=== PATIENT | male | born 1975 | race Hispanic/Latino ===

== ENCOUNTER 2021-09-18 06:33 | Emergency (ER) | payer BC ==
[~2021-09-18] VITALS: Ht 177.8 cm; Wt 86.2 kg
[2021-09-18] MEDS ORDERED: SODIUM CHLORIDE 0.9% 1000ML 1,000 ML IV STA (06:44)
[2021-09-18] MEDS ORDERED: KETOROLAC TROMETHAMINE 30 MG/ML VIAL IV STA (06:44)
[2021-09-18] MEDS ORDERED: FENTANYL CITRATE/PF 100MCG/2 ML INJ IV PRN (06:45)
[2021-09-18 06:53] LABS: BASOPHILS % 0.3 % (0.0-1.0); EOSINOPHILS # (AUTO) 0.2 (0.0-0.4); HEMATOCRIT 34.8 % (38.2-49.6); HEMOGLOBIN 11.8 g/dL (14.0-18.0); LYMPHOCYTES # (AUTO) 1.4 (1.0-3.2); LYMPHOCYTES % 22.7 % (18.0-39.1); MEAN CORPUSCULAR HEMOGLOBIN 26.8 pg (28-32); MEAN CORPUSCULAR HGB CONC 33.9 g/dL (31-35); MEAN CORPUSCULAR VOLUME 78.9 fL (81-99); MONOCYTES # (AUTO) 0.3 (0.2-0.8); MONOCYTES % 4.5 % (4.4-11.3); NEUTROPHILS # (AUTO) 4.1 (2.1-6.9); NEUTROPHILS % 69.3 % (38.7-80.0); PLATELET COUNT 222 x10e3/uL (140-360); RED BLOOD COUNT 4.41 x10e6/uL (4.3-5.7); RED CELL DISTRIBUTION WIDTH 13.8 % (11.7-14.4)
[2021-09-18 07:29] LABS: ALBUMIN 3.4 g/dL (3.5-5.0); ALBUMIN/GLOBULIN RATIO 0.8 (0.8-2.0); ANION GAP 14.6 mmol/L (8-16); CREATININE, SERUM 2.76 mg/dL (0.72-1.25); POTASSIUM 3.6 mmol/L (3.5-5.1)
[2021-09-18 08:45] LABS: CLARITY,URINE CLEAR (CLEAR); COLOR,URINE YELLOW (YELLOW); LEUKOCYTE ESTERASE ,URINE NEGATIVE (NEGATIVE); NITRITE,URINE NEGATIVE (NEGATIVE)
[2021-09-18 08:46] LABS: KETONES,URINE NEGATIVE (NEGATIVE); PROTEIN,URINE DIPSTICK >=300 (NEGATIVE); URINE UROBILINOGEN 0.2 mg/dL (0.2 - 1)
[2021-09-18 09:03] LABS: WBC,URINE (MAN) 0-5 /HPF (0-5)
[2021-09-18 09:04] LABS: BACTERIA,URINE RARE /HPF; EPITHELIAL CELLS,URINE RARE /LPF; TRANSITIONAL EPI CELLS,URINE RARE
[2021-09-18] MEDS ORDERED: SODIUM CHLORIDE 0.9% 1000ML 1,000 ML IV SCH (10:00)
== END 2021-09-18 10:18 | disposition home or self-care (01) ==
LOC: ER 06:40
DX: R10.11 Right upper quadrant pain (principal)
CPT/HCPCS: 36415; 74176; 80053; 81001; 83690; 85025; 85379; 93005; 99284; J1885; J3010; J7030

== ENCOUNTER 2022-10-31 01:02 | Emergency (ER) | payer BC, OTHER ==
[~2022-10-31] VITALS: Ht 177.8 cm; Wt 86.2 kg
[2022-10-31] MEDS ORDERED: ONDANSETRON HCL 4 MG ORAL DISINTEGRATING TAB PO ONE (01:30)
[2022-10-31] MEDS ORDERED: HYDROCODONE/APAP 5MG-325MG TAB PO ONE (01:30)
[2022-10-31] MEDS ORDERED: KETOROLAC TROMETHAMINE 30 MG/ML VIAL IM ONE (01:30)
[2022-10-31] MEDS ORDERED: HYDROCODONE/APAP 5MG-325MG TAB ONE (01:45)
[2022-10-31] MEDS ORDERED: ONDANSETRON HCL 4 MG ORAL DISINTEGRATING TAB ONE (01:45)
[2022-10-31] MEDS ORDERED: KETOROLAC TROMETHAMINE 30 MG/ML VIAL ONE (01:45)
[2022-10-31] MEDS ORDERED: ZANAFLEX4 MG PO (03:07)
[2022-10-31] MEDS ORDERED: ACETAMINOPHEN-1 EAC4 PO (03:07)
[2022-10-31] MEDS ORDERED: ONDANSETRON ODT4 MG PO (03:07)
[2022-10-31] MEDS ORDERED: IBUPROFEN200 MG PO (03:07)
== END 2022-10-31 04:13 | disposition home or self-care (01) ==
LOC: FSED 01:19
DX: M54.42 Lumbago with sciatica, left side (principal); G58.9 Mononeuropathy, unspecified; I10 Essential (primary) hypertension; E11.9 Type 2 diabetes mellitus without complications
CPT/HCPCS: 72131; 99283; J1885; Q0162

== ENCOUNTER 2024-06-17 11:33 | Emergency (ER) | payer OTHER, MEDICARE ==
[~2024-06-17] VITALS: Ht 177.8 cm; Wt 86.2 kg
[~2024-06-17 11:33] MED LIST: ACETAMINOPHEN-1 EAC4 PO; IBUPROFEN200 MG PO; ONDANSETRON ODT4 MG PO; ZANAFLEX4 MG PO
[2024-06-17] MEDS ORDERED: Morphine 2mg Syringe 2 MG/ML SYR IM ONE (12:00)
[2024-06-17] MEDS ORDERED: DIPHENHYDRAMINE25 M2 PO (12:02)
[2024-06-17] MEDS: Morphine 4mg INJECTION 4 MG/ML INJ IM ONE (12:19)
[2024-06-17] MEDS: ONDANSETRON HCL 4 MG ORAL DISINTEGRATING TAB PO ONE (12:19)
[2024-06-17] MEDS: LORAZEPAM INJ 2 MG/ML VIAL IM ONE (12:19)
[2024-06-17 12:46] VITALS: PULSE 84; RESP 18; TEMP 98.6
[2024-06-17 12:50] VITALS: BP 121/58; O2SAT 98
== END 2024-06-17 12:45 | disposition home or self-care (01) ==
LOC: FSED 11:39
DX: M54.41 Lumbago with sciatica, right side (principal); I12.0 Hypertensive chronic kidney disease with stage 5 chronic kidney disease or end stage renal disease; E11.22 Type 2 diabetes mellitus with diabetic chronic kidney disease; N18.6 End stage renal disease; Z99.2 Dependence on renal dialysis
CPT/HCPCS: 99283; J2060; J2270 ×2; Q0162